=== PATIENT | male | born 1975 | race Two or more races ===

== ENCOUNTER 2017-03-12 21:00 | Emergency (ER) | payer OTHER ==
[~2017-03-12] VITALS: Ht 172.7 cm; Wt 99.8 kg
[2017-03-12 21:20] VITALS: BP 149/94
[2017-03-13] MEDS ORDERED: CYCLOBENZAPRINE HCL 10 MG TAB PO ONE (00:30)
[2017-03-13] MEDS ORDERED: KETOROLAC TROMETH 60MG/2ML VIAL IM ONE ×2 (00:30→00:44)
[2017-03-13] MEDS ORDERED: CYCLOBENZAPRINE HCL 10 MG TAB ONE (00:44)
== END 2017-03-13 01:06 | disposition home or self-care (01) ==
LOC: ER 21:08
DX: S33.5XXA Sprain of ligaments of lumbar spine, initial encounter (principal); S16.1XXA Strain of muscle, fascia and tendon at neck level, initial encounter; M79.1 Myalgia; V49.49XA Driver injured in collision with other motor vehicles in traffic accident, initial encounter; Y93.89 Activity, other specified; Y99.8 Other external cause status; Y92.410 Unspecified street and highway as the place of occurrence of the external cause
CPT/HCPCS: 72125; 72128; 72131; 73030; 96372; 99284; J1885